=== PATIENT | female | born 1990 | race Two or more races ===

== ENCOUNTER 2024-12-22 14:47 | Emergency (ER) | payer OTHER ==
[~2024-12-22] VITALS: Ht 157.5 cm; Wt 58.7 kg
[2024-12-22 15:16] VITALS: BP 116/64; PULSE 90; RESP 16; TEMP 99; O2SAT 96
--- NOTE | 2024-12-22 15:32 | ED.PDOC ---
[facility] HPI Comments A 34 YEAR OLD FEMALE PRESENTS TO THE ED WITH COMPLAINT OF VAGINAL BLEEDING AND PELVIC CRAMPING DURING . PATIENT STATES SHE WAS ABOUT 6 WEEKS AND BEGAN TO EXPERIENCE VAGINAL BLEEDING AND PELVIC CRAMPING 3 DAYS AGO. PATIENT NOTES SHE WENT TO HER [facility] 2 DAYS AGO WHERE BLOOD TEST AND AN ULTRASOUND WAS DONE ALL OF WHICH WAS NORMAL AND REVEALED A BETA HCG LEVEL OF 10,600. PATIENT DENIES DYSURIA, HEMATURIA, VAGINAL DISCHARGE, FEVER, CHILLS, SHORTNESS OF BREATH, CHEST PAIN, ABDOMINAL PAIN, NAUSEA, VOMITING, HEADACHE, OR OTHER COMPLAINTS. NO OTHER SYMPTOMS OR MODIFYING FACTORS AT THIS TIME. PATIENT IS ALERT, ORIENTED X 4, AND HAS STEADY GAIT. Chief Complaint: Vaginal Bleed Time Seen by MD: 14:57 Reviewed Notes: Nurses Notes, Medications, Allergies Allergies: Coded Allergies: NO KNOWN ALLERGIES (Unverified , 12/22/24) Information Source: Patient Mode of Arrival: Ambulatory Timing: Days Prehospital treatment: None Severity: Mild, Moderate Vaginal Discharge: None Vaginal Lesions: None Bleeding Quality: Bright Red Vaginal Mass: None Onset Of Mass/Bleeding: Spontaneous Sexual Activity: Last Consensual [place]: Unknown Control: None History of: Current Blood Type: Unknown Symptoms of Possible : None Associated Signs and Symptoms: Vaginal Bleeding, Cramping Past Medical History PAST MEDICAL HISTORY: Denies Surgical History: Denies all surgeries COATER SLATE History: No Pertinent COATER SLATE History Family History Family History: Reviewed,noncontributory to illness Social History Smoker: Non-Smoker Alcohol: Denies ETOH Use Drugs: Denies Drug Use Lives In: Home Constitutional: denies: chills, diaphoresis, fatigue, fever, malaise, sweats, weakness, others EENTM: denies: blurred vision, double vision, ear bleeding, ear discharge, ear drainage, ear pain, ear ringing, eye pain, eye redness, hearing loss, mouth pain, mouth swelling, nasal discharge, nose bleeding, nose congestion, nose pain, photophobia, tearing, throat pain, throat swelling, voice changes, others Respiratory: denies: cough, hemoptysis, orthopnea, SOB at rest, shortness of breath, SOB with excertion, stridor, wheezing, others Cardiovascular: denies: chest pain, dizzy spells, diaphoresis, Dyspnea on exe rtion, edema, irregular heart beat, left arm pain, lightheadedness, palpitations, PND, syncope, others Gastrointestinal: denies: abdomen distended, abdominal pain, blood streaked bowels, constipated, diarrhea, dysphagia, difficulty swallowing, hematemesis, melena, nausea, poor appetite, poor fluid intake, rectal bleeding, rectal pain, vomiting, others Genitourinary: reports: abnormal vagina bleeding, pain (PELVIC CRAMPING), ; denies: burning, dyspareunia, dysuria, flank pain, frequency, hematuria, incontinence, vagina discharge, urgency, others Neurological: denies: dizziness, fainting, headache, left sided numbness, left sided weakness, numbness, paresthesia, pre-existing deficit, right sided numbness, right sided weakness, seizure, speech problems, tingling, tremors, weakness, others Musculoskeletal: denies: back pain, gout, joint pain, joint swelling, muscle pain, muscle stiffness, neck pain, others Integumetry: denies: bruises, change in color, change in hair/nails, dryness, laceration, lesions, lumps, rash, wounds, others Allergic/Immunocompromised: denies: Difficulty Healing, Frequent Infections, Hives, Itching, others Hematologic/Lymphatic: denies: anemia, blood clots, easy bleeding, easy bruising, swollen glands, others Endocrine: denies: excessive hunger, excessive sweating, excessive thirst, excessive urination, flushing, intolerance to cold, intolerance to heat, unexplained weight gain, unexplained weight loss, others Psychiatric: denies: anxiety, bipolar disorder, depression, hopeless, panic disorder, schizophrenia, sleepless, suicidal, others All Other Systems: Reviewed and Negative Physical Exam General Appearance: No Apparent Distress, Normal HEENT: Normal ENT Inspection, PERRL/EOMI, Pharynx Normal, TMs Normal Neck: Full Range of Motion, Non-Tender, Normal, Normal Inspection Respiratory: Chest Non-Tender, Lungs Clear, No Accessory Muscle Use, No Respiratory Distress, Normal Breath Sounds Cardiovascular: No Edema, No JVD, No Murmur, No Gallop, Normal Peripheral Pulses, Regular Rate/Rhythm Breast Exam: Deferred Gastrointestinal: No Organomegaly, Non Tender, No Pulsatile Mass, Normal Bowel Sounds, Soft Genitalia: Deferred Pelvic: Normal External Exam, Tender Uterus, Vaginal Bleeding (NO ACUTE VAGINAL BLEEDING AND BLOOD CLOTS. ) Rectal: Deferred Extremities: No calf tenderness, Normal capillary refill, Normal inspection, Normal range of motion, Non-tender, No pedal edema Musculoskeletal : Apperance: Normal Neurologic: Alert, substitute crossing guard II-XII nml as Tested, No Motor Deficits, Normal Affect, Normal Mood, No Sensory Deficits Cerebellar Function: Normal Reflexes: Normal Skin: Dry, Normal Color, Warm Peripheral Pulses: 2+ carotid (R), 2+ carotid (L) Lymphatic: No Adenopathy Was a procedure done? Was a procedure done?: No Differential Diagnosis (COATER SLATE) Vaginal Bleeding: - Complete, - Incomplete, - Threatened, UTI, Vaginitis Mass / Lesion: N/A Vaginal Discharge: UTI, N/A X-Ray, Labs, Meds, VS Vital Signs Date Time Temp Pulse Resp B/P (MAP) Pulse Ox O2 Delivery O2 Flow Rate FiO2 12/22/24 15:16 90 16 96 Room Air 12/22/24 15:16 99.0 90 16 116/64 (81) 96 99.0 12/22/24 15:16 99.0 90 16 116/64 (81) 96 99.0 Lab Test 12/22/24 15:21 12/22/24 15:00 Range/Units White Blood Count 7.9 4.4-10.8 10^3/uL Red Blood Count 4.44 4.0-5.20 10^6/uL Hemoglobin 13.1 12.2-16.2 g/dL Hematocrit 38.4 36.0-46.0 % Mean Corpuscular Volume 86.5 80.0-100.0 fL Mean Corpuscular Hemoglobin 29.5 28.0-32.0 pg Mean Corpuscular Hemoglobin Concent 34.1 32.0-36.0 g/dL Red Cell Distribution Width 12.6 11.8-14.3 % Platelet Count 312 140-450 10^3/uL Mean Platelet Volume 7.2 6.9-10.8 fL Neutrophils (%) (Auto) 63.7 37.0-80.0 % Lymphocytes (%) (Auto) 28.4 10.0-50.0 % Monocytes (%) (Auto) 4.5 0.0-12.0 % Eosinophils (%) (Auto) 2.6 0.0-7.0 % Basophils (%) (Auto) 0.8 0.0-2.0 % Neutrophils # (Auto) 5.0 1.6-8.6 10 ^3/uL Lymphocytes # (Auto) 2.2 0.4-5.4 10 ^3/uL Monocytes # (Auto) 0.4 0-1.3 10 ^3/uL Eosinophils # (Auto) 0.2 0-0.8 10 ^3/uL Basophils # (Auto) 0.1 0-0.2 10 ^3/uL Nucleated Red Blood Cells 0.1 % Beta HCG, Quantitative 4060.1 H 1.5-4.2 mIU/mL Urine Color Yellow Yellow Urine Clarity Turbid H Clear Urine pH 5.0 5.0-9.0 Urine Specific [place] 1.021 1.001-1.035 Urine Protein Trace H Negative Urine Ketones Negative Negative Urine Blood 3+ H Negative /uL Urine Nitrite Negative Negative Urine Bilirubin Negative Negative Urine Urobilinogen Normal Negative mg/dL Urine Leukocyte Esterase 1+ Negative /uL Urine RBC 2387 0 - 4 /hpf Urine Microscopic WBC 18 H 0-5 /HPF Urine Squamous Epithelial Cells Few <5 /hpf Urine Bacteria Few H None Seen /hpf Urine Glucose Normal Normal mg/dL Urine Test Positive Negative OBSTETRIC ULTRASOUND PRIOR TO 14 WEEKS CLINICAL INDICATION: VAGINAL BLEEDING, 6 WEEKS TECHNIQUE: Multiple grayscale ultrasound images were obtained of the pelvis via transabdominal and transvaginal approach for obstetric evaluation. Limited color Doppler and spectral Doppler acquisitions were also obtained. COMPARISON: None FINDINGS: Uterus: 13.6 x 6.1 x 5.7 cm. There is a tiny cystic structure in the endometrium cavity visualized measuring 0.5 cm. No yolk sac or pole is seen at this time. Right adnexa: right ovary 2.8 x 2.1 x 3.1 cm. Normal arterial blood flow in the ovary. No right adnexal mass seen. Left adnexa: left ovary not visualized. No left adnexal mass seen. Other: None IMPRESSION: 1. Tiny cystic structure in the endometrium measuring 5.4 mm which could be an early gestational sac. Follow-up by trending beta HCGs and follow-up ultrasound as clinically indicated. 2. Normal right ovary. 3. Left ovary not visualized. ATED BY: DUNIA MEDINA MD DICTATED DATE/TIME: 12/22/241656 SIGNED BY: DUNIA MEDINA MD SIGNED DATE/TIME: 12/22/241656 CC: X-Ray, Labs, Meds, VS Comment EXTERNAL MEDICAL RECORDS REVIEWED: [NONE] INDEPENDENT HISTORIANS: [NONE] SOCIAL DETERMINANTS OF HEALTH: [NONE] LABS ORDERED: CBC, BMP, UA, URINE , BETA HCG QUANT REVIEWED AND INTERPRETED RESULTS: BLOOD 3+ IMAGING ORDERED: US OB < 14 WKS TREATMENTS ORDERED: PROCEDURES PERFORMED: NONE CRITICAL CARE TIME: NONE I HAVE DISCUSSED THE PATIENT WITH THE ATTENDING PHYSICIAN DR. MALDONADO AND HE AGREES WITH THE PATIENT'S PLAN OF CARE AND DISPOSITION. BASED ON HISTORY OF PRESENT ILLNESS, AND PHYSICAL EXAM, PATIENT WILL BE DISCHARGED HOME. SHARED DECISION MAKING: PATIENT INSTRUCTED TO FOLLOW UP WITH PRIMARY CARE PROVIDER IN 1-2 DAYS FOR RE-EVALUATION OF SYMPTOMS. PATIENT VERBALIZES UNDERSTANDING TO RETURN TO ED FOR NEW OR WORSENING SYMPTOMS OR IF FOLLOW UP WITH PCP CANNOT BE OBTAINED. PATIENT FEELS COMFORTABLE GOING HOME AT THIS TIME. ALL QUESTIONS ADDRESSED AT TIME OF DISCHARGE. Images Reviewed?: Images reviewed and evaluated by me Time of 1ST Reevaluation: 17:20 Reevaluation 1ST: Improved Patient Education/Counseling: Diagnosis, Treatment, Need For Follow Up Family Education/Counseling: Diagnosis, Treatment, Need For Follow Up Medical Screening: No EMC Exist At This Time Departure 1 Departure Time of Disposition: 17:30 Impression: Primary Impression: Vaginal bleeding Additional Impression: Threatened in early Disposition: 01 HOME / SELF CARE / HOMELESS Condition: Stable Additional Instructions: FOLLOW-UP WITH [facility] IN 1N 2 DAYS. RETURN TO ED FOR ANY NEW OR WORSENING SYMPTOMS. Discharged With: Self Critical Care Note Critical Care Time?: No Stability Stability form required: No I personally scribed for ZAHRA ANDREA ([email or web address]) on 12/22/24 at 15:32. Electronically submitted by Julius Ordaz ([email or web address]). I personally scribed for ZAHRA ANDREA ([email or web address]) on 12/22/24 at 17:11. Electronically submitted by Julius Ordaz ([email or web address]). ZAHRA ANDREA December 22, 2024 15:32
[2024-12-22 15:35] LABS: Basophils # (auto) 0.1 10 ^3/uL (0-0.2); Basophils % (auto) 0.8 % (0.0-2.0); Eosinophils # (auto) 0.2 10 ^3/uL (0-0.8); Eosinophils % (auto) 2.6 % (0.0-7.0); Hematocrit 38.4 % (36.0-46.0); Hemoglobin 13.1 g/dL (12.2-16.2); Lymphocytes # (auto) 2.2 10 ^3/uL (0.4-5.4); Lymphocytes % (auto) 28.4 % (10.0-50.0); Mean Corpuscular Hemoglobin 29.5 pg (28.0-32.0); Mean Corpuscular Hgb Conc. 34.1 g/dL (32.0-36.0); Mean Corpuscular Volume 86.5 fL (80.0-100.0); Monocytes # (auto) 0.4 10 ^3/uL (0-1.3); Monocytes % (auto) 4.5 % (0.0-12.0); Neutrophils % (auto) 63.7 % (37.0-80.0); Nucleated Red Blood Cells % 0.1 %; Platelet Count (auto) 312 10^3/uL (140-450); Red Blood Cells 4.44 10^6/uL (4.0-5.20); Red Cell Distribution Width 12.6 % (11.8-14.3); White Blood Cell 7.9 10^3/uL (4.4-10.8)
[2024-12-22 15:50] LABS: Urine Bacteria FEW /hpf (None Seen); Urine Blood 3+ /uL (Negative); Urine Clarity Turbid (Clear); Urine Color Yellow (Yellow); Urine Protein, UAD TRACE (Negative); Urine Specific Gravity 1.021 (1.001-1.035); Urine Squamous Epithelial Cell FEW /hpf (<5); Urine Urobilinogen Normal (Negative); Urine WBC 18 /HPF (0-5)
--- NOTE | 2024-12-22 16:59 | DVH ---
OBSTETRIC ULTRASOUND PRIOR TO 14 WEEKS CLINICAL INDICATION: VAGINAL BLEEDING, 6 WEEKS TECHNIQUE: Multiple grayscale ultrasound images were obtained of the pelvis via transabdominal and tr ansvaginal approach for obstetric evaluation. Limited color Doppler and spectral Doppler acquisitions were also obtained. COMPARISON: None FINDINGS: Uterus: 13.6 x 6.1 x 5.7 cm. There is a tiny cystic structure in the endometrium cavity visualized me asuring 0.5 cm. No yolk sac or pole is seen at this time. Right adnexa: right ovary 2.8 x 2.1 x 3.1 cm. Normal arterial blood flow in the ovary. No right adne xal mass seen. Left adnexa: left ovary not visualized. No left adnexal mass seen. Other: None IMPRESSION: 1. Tiny cystic structure in the endometrium measuring 5.4 mm which could be an early gestational sac. Follow-up by trending beta HCGs and follow-up ultrasound as clinically indicated. 2. Normal right ovary. 3. Left ovary not visualized.
== END 2024-12-22 17:30 | disposition home or self-care (01) ==
LOC: ER 14:50
DX: O20.0 Threatened abortion (principal); Z3A.01 Less than 8 weeks gestation of pregnancy
CPT/HCPCS: 36415; 76801; 76817; 81001; 81025; 84702; 85025

== ENCOUNTER 2025-04-18 22:01 | Emergency (ER) | payer OTHER ==
[~2025-04-18] VITALS: Ht 157.5 cm; Wt 60.0 kg
[2025-04-18] MEDS: KETOROLAC TROMETH 30 MG/ML 1ML VIAL IV ONE (22:45)
[2025-04-18] MEDS: SODIUM CHLORIDE 0.9% 1,000 ML IVB ONE (22:45)
--- NOTE | 2025-04-18 22:58 | ED.PDOC ---
GI ASSESSMENT HPI Comments 35-year-old female who came to ER for abdominal pain. Patient states for the past 2 weeks, she has been experiencing suprapubic abdominal cramping, associated with the abdominal bloatedness, lower back pains. Patient states she usually has regular monthly cycles, has been delayed for the past 2 months. test taken at home showed negative results. She denies any vaginal bleeding Chief Complaint: Abdominal Pain Time Seen by MD: 22:57 Reviewed Notes: Nurses Notes Allergies: Coded Allergies: NO KNOWN ALLERGIES (Unverified , 12/22/24) Home Meds Active Scripts Gabapentin (Once-Daily) (Gabapentin) 300 Mg Tab, 300 MG PO Q6HP PRN, #30 TAB Prov:DIMITRIOS MATUTE MD 04/19/25 Sulfamethoxazole W/Trimethopri (Bactrim Ds Tablet) 1 Tab Tb, 1 TAB PO BID for 7 Days, #14 TAB Prov:DIMITRIOS MATUTE MD 04/19/25 Information Source: Patient Mode of Arrival: Ambulatory Timing: Weeks Duration: Intermittent Quality: Cramping Pain Location: Suprapubic Past Medical History PAST MEDICAL HISTORY: Denies Surgical History: Denies all surgeries AIRPORT REFUELING HANDLER History: No Pertinent AIRPORT REFUELING HANDLER History Family History Family History: Family hx of Cancer (Ovarian) Social History Smoker: Non-Smoker Alcohol: Denies ETOH Use Drugs: Denies Drug Use Lives In: Home Constitutional: denies: chills, diaphoresis, fatigue, fever, malaise, sweats, weakness, others EENTM: denies: blurred vision, double vision, ear bleeding, ear discharge, ear drainage, ear pain, ear ringing, eye pain, eye redness, hearing loss, mouth pain, mouth swelling, nasal discharge, nose bleeding, nose congestion, nose pain, photophobia, tearing, throat pain, throat swelling, voice changes, others Respiratory: denies: cough, hemoptysis, orthopnea, SOB at rest, shortness of breath, SOB with excertion, stridor, wheezing, others Cardiovascular: denies: chest pain, dizzy spells, diaphoresis, Dyspnea on exertion, edema, irregular heart beat, left arm pain, lightheadedness, palpitations, PND, syncope, others Gastrointestinal: reports: abdomen distended, abdominal pain; denies: blood streaked bowels, constipated, diarrhea, dysphagia, difficulty swallowing, hemat emesis, melena, nausea, poor appetite, poor fluid intake, rectal bleeding, rectal pain, vomiting, others Genitourinary: denies: abnormal vagina bleeding, burning, dyspareunia, dysuria, flank pain, frequency, hematuria, incontinence, pain, , vagina discharge, urgency, others Neurological: denies: dizziness, fainting, headache, left sided numbness, left sided weakness, numbness, paresthesia, pre-existing deficit, right sided numbness, right sided weakness, seizure, speech problems, tingling, tremors, weakness, others Musculoskeletal: reports: back pain; denies: gout, joint pain, joint swelling, muscle pain, muscle stiffness, neck pain, others Allergic/Immunocompromised: denies: Difficulty Healing, Frequent Infections, Hives, Itching, others Hematologic/Lymphatic: denies: anemia, blood clots, easy bleeding, easy bruising, swollen glands, others Endocrine: denies: excessive hunger, excessive sweating, excessive thirst, excessive urination, flushing, intolerance to cold, intolerance to heat, unexplained weight gain, unexplained weight loss, others Psychiatric: denies: anxiety, bipolar disorder, depression, hopeless, panic disorder, schizophrenia, sleepless, suicidal, others Physical Exam General Appearance: No Apparent Distress, Normal HEENT: Normal ENT Inspection, Pharynx Normal, TMs Normal Neck: Full Range of Motion, Non-Tender, Normal, Normal Inspection Respiratory: Chest Non-Tender, Lungs Clear, No Accessory Muscle Use, No Respiratory Distress, Normal Breath Sounds Cardiovascular: No Edema, No JVD, No Murmur, No Gallop, Normal Peripheral Pulses, Regular Rate/Rhythm Breast Exam: Deferred Gastrointestinal: No Organomegaly, No Pulsatile Mass, Normal Bowel Sounds, Soft, Suprapubic, Tenderness Genitalia: Deferred Pelvic: Deferred Rectal: Deferred Extremities: No calf tenderness, Normal capillary refill, Normal inspection, Normal range of motion, Non-tender, No pedal edema Musculoskeletal : Apperance: Normal Neurologic: Alert, clay roaster II-XII nml as Tested, No Motor Deficits, Normal Affect, Normal Mood, No Sensory Deficits Cerebellar Function: Normal Reflexes: Normal Skin: Dry, Normal Color, Warm Lymphatic: No Adenopathy Was a procedure done? Was a procedure done?: No GI differential Dx Differential Diagnosis: Diverticular disease, Ovarian cyst/torsion, UTI, Urolithiasis, X-Ray, Labs, Meds, VS Vital Signs Date Time Temp Pulse Resp B/P (MAP) Pulse Ox O2 Delivery O2 Flow Rate FiO2 04/19/25 02:37 97.9 75 16 114/72 (86) 97 97.9 04/19/25 02:00 75 16 96 Room Air* 0 21 21 04/19/25 00:16 98.4 82 18 118/69 (85) 93 98.4 04/18/25 22:05 98.2 63 18 134/73 99 98.2 Lab Test 04/18/25 23:59 04/18/25 22:57 Range/Units Urine Color Light-yellow Yellow Urine Clarity Turbid H Clear Urine pH 5.0 5.0-9.0 Urine Specific [place] 1.017 1.001-1.035 Urine Protein Negative Negative Urine Ketones Negative Negative Urine Blood Trace H Negative /uL Urine Nitrite Negative Negative Urine Bilirubin Negative Negative Urine Urobilinogen Normal Negative mg/dL Urine Leukocyte Esterase 1+ Negative /uL Urine RBC None seen 0 - 4 /hpf Urine Microscopic WBC 10 H 0-5 /HPF Urine Squamous Epithelial Cells Few <5 /hpf Urine Bacteria Many H None Seen /hpf Urine Mucus Few None Seen Urine Glucose Normal Normal mg/dL Urine Test Negative Negative White Blood Count 8.2 4.4-10.8 10^3/uL Red Blood Count 4.49 4.0-5.20 10^6/uL Hemoglobin 13.4 12.2-16.2 g/dL Hematocrit 38.6 36.0-46.0 % Mean Corpuscular Volume 85.9 80.0-100.0 fL Mean Corpuscular Hemoglobin 29.8 28.0-32.0 pg Mean Corpuscular Hemoglobin Concent 34.6 32.0-36.0 g/dL Red Cell Distribution Width 12.4 11.8-14.3 % Platelet Count 306 140-450 10^3/uL Mean Platelet Volume 7.4 6.9-10.8 fL Neutrophils (%) (Auto) 55.5 37.0-80.0 % Lymphocytes (%) (Auto) 35.4 10.0-50.0 % Monocytes (%) (Auto) 5.9 0.0-12.0 % Eosinophils (%) (Auto) 2.4 0.0-7.0 % Basophils (%) (Auto) 0.8 0.0-2.0 % Neutrophils # (Auto) 4.6 1.6-8.6 10 ^3/uL Lymphocytes # (Auto) 2.9 0.4-5.4 10 ^3/uL Monocytes # (Auto) 0.5 0-1.3 10 ^3/uL Eosinophils # (Auto) 0.2 0-0.8 10 ^3/uL Basophils # (Auto) 0.1 0-0.2 10 ^3/uL Nucleated Red Blood Cells 0.0 % Sodium Level 142 136-145 mmol/L Potassium Level 3.9 3.5-5.1 mmol/L Chloride Level 106 98-107 mmol/L Carbon Dioxide Level 28 20-31 mmol/L Anion Gap 8 5-15 Blood Urea Nitrogen 7 L 9-23 mg/dL Creatinine 0.68 0.550-1.02 mg/dL Glomerular Filtration Rate Calc 116 >90 mL/min BUN/Creatinine Ratio 10.3 10.0-20.0 Serum Glucose 113 H 74-106 mg/dL Calcium Level 9.3 8.7-10.4 mg/dL Total Bilirubin 0.2 0.2-1.0 mg/dL Aspartate Amino Transferase (AST) 14 13-40 U/L Alanine Aminotransferase (ALT) 13 7-40 U/L Alkaline Phosphatase 73 46-116 U/L Total Protein 7.5 5.7-8.2 g/dL Albumin 4.7 3.2-4.8 g/dL Time of 1ST Reevaluation: 22:54 Reevaluation 1ST: Unchanged Patient Education/Counseling: Diagnosis, Treatment Family Education/Counseling: No Family Present SEPSIS Sepsis Screen Date sepsis recognized/suspect: Apr 18, 2025 Time Sepsis recognized/suspect: 2204 Recent Procedure: No On Antibiotic Therapy: No Respiratory Rate >20: No Heart Rate >90: No Temp<36 C (96.8 F) or >38.3 C: No SBP <90 or MAP <65 mmHG: No New Acute Mental Status Change: No Is the patient on CPAP, BIPAP,: No Physician Orders Ct Ab Pel Wo Con-No Oral Or Iv (04/18/25 22:44) Vital Signs Date Time Temp Pulse Resp B/P (MAP) Pulse Ox O2 Delivery O2 Flow Rate FiO2 04/19/25 02:37 97.9 75 16 114/72 (86) 97 97.9 04/19/25 02:00 75 16 96 Room Air* 0 21 21 04/19/25 00:16 98.4 82 18 118/69 (85) 93 98.4 04/18/25 22:05 98.2 63 18 134/73 99 98.2 Laboratory Tests Test 04/18/25 22:57 White Blood Count 8.2 10^3/uL (4.4-10.8) Departure 1 Departure Time of Disposition: 01:00 Impression: Primary Impression: LLQ abdominal pain Additional Impression: UTI (urinary tract infection) Disposition: HOME / SELF CARE / HOMELESS Condition: Stable e-Prescriptions Gabapentin (Once-Daily) (Gabapentin) 300 Mg Tab 300 MG PO Q6HP PRN, #30 TAB Prov: DIMITRIOS MATUTE MD 04/19/25 Sulfamethoxazole W/Trimethopri (Bactrim Ds Tablet) 1 Tab Tb 1 TAB PO BID for 7 Days, #14 TAB Prov: DIMITRIOS MATUTE MD 04/19/25 Discharged With: Self Critical Care Note Critical Care Time?: No Stability Stability form required: No Heart Score Heart Score: Heart Score Response (Comments) Value History N/A 0 EKG N/A 0 Age N/A 0 Risk Factors N/A 0 Troponin N/A 0 Total 0 I personally scribed for DIMITRIOS MATUTE MD ([email or web address]) on 04/18/25 at 22:58. Electronically submitted by Pablo Fang ([facility]). DIMITRIOS MATUTE MD Apr 18, 2025 22:58
[2025-04-18 23:16] LABS: Hematocrit 38.6 % (36.0-46.0); Hemoglobin 13.4 g/dL (12.2-16.2); Mean Corpuscular Hemoglobin 29.8 pg (28.0-32.0); Mean Corpuscular Volume 85.9 fL (80.0-100.0); Nucleated Red Blood Cells % 0.0 %
[2025-04-18 23:33] LABS: Alanine Aminotransferase 13 U/L (7-40); Albumin 4.7 g/dL (3.2-4.8); Alkaline Phosphatase 73 U/L (46-116); Anion Gap 8 (5-15); BUN/Creatinine Ratio 10.3 (10.0-20.0); Calcium 9.3 mg/dL (8.7-10.4); Carbon Dioxide 28 mmol/L (20-31); Chloride 106 mmol/L (98-107); Potassium 3.9 mmol/L (3.5-5.1); Sodium 142 mmol/L (136-145); Total Protein 7.5 g/dL (5.7-8.2)
[2025-04-18 23:37] LABS: Bilirubin, Total 0.2 mg/dL (0.2-1.0); Blood Urea Nitrogen 7 mg/dL (9-23); Glucose 113 mg/dL (74-106)
[2025-04-19 01:08] LABS: Urine Protein, UAD Negative (Negative)
--- NOTE | 2025-04-19 01:46 | DVH ---
Exam: CT CT AB PEL WO CON-NO ORAL OR IV History: LLQ pain Comparison Study: None Technique: Multidetector spiral CT of the abdomen was performed from lung bases to pubic symphysis. I maging was performed without IV contrast. Axial, coronal and sagittal multiplanar reformats were obta ined from the axial data set by the technologist. Radiation Dose : 1. Abdomen/Pelvis: CTDIvol 6 mGy, DLP 315 mGy*cm. Findings: Evaluation of solid organs is limited due to lack of intravenous contrast use. Lower Chest: No acute findings. Liver: Unremarkable. Gallbladder and Biliary Tree: Unremarkable Pancreas: Unremarkable. Spleen: Unremarkable. Adrenal Glands: Unremarkable. Kidneys/Ureters: No evidence of obstruction. 6 mm stone in the right collecting system. The course o f the ureters is obscured by crowding of structures. Bladder: Grossly unremarkable for degree of distention. Pelvic Organs: Unremarkable Bowel: Normal caliber without wall thickening. No evidence of appendicitis. Vasculature: Unremarkable. Lymphadenopathy: No obvious adenopathy. Peritoneum: No ascites, free air, or fluid collection. Abdominal Wall: Abdominoplasty changes. Musculoskeletal: No acute findings. IMPRESSION: 1. No evidence of urinary obstruction or other acute abdominopelvic abnormality. 2. Nonobstructing 6 mm right nephrolith. Radiation optimization: All CT scans at this facility use at least one of these dose optimization deanna hniques: automated exposure control mA and/or kV adjustment per patient size (includes targeted exam s where dose is matched to clinical indication) or iterative reconstruction.
[2025-04-19 02:00] VITALS: PULSE 75; RESP 16; O2SAT 96
[2025-04-19] MEDS ORDERED: BACDST PO (02:13)
[2025-04-19] MEDS ORDERED: GABA300T4 PO (02:14)
[2025-04-19] MEDS: cefTRIAXone 1GM/50ML D5W 50 ML IV ONE (02:24)
[2025-04-19 02:37] VITALS: BP 114/72; PULSE 75; RESP 16; TEMP 97.9; O2SAT 97
== END 2025-04-19 02:35 | disposition home or self-care (01) ==
LOC: ER 22:01
DX: N39.0 Urinary tract infection, site not specified (principal); R10.32 Left lower quadrant pain; Z79.899 Other long term (current) drug therapy
CPT/HCPCS: 36415; 74176; 80053; 81001; 81025; 85025